=== PATIENT | male | born 1970 | race Caucasian/White ===

== ENCOUNTER 2018-09-20 14:18 | Emergency (ER) | payer OTHER ==
[2018-09-20 14:37] VITALS: BMI 29.1
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
[2018-09-20 14:59] LABS: BASO % 0.5 % (0-2.0); EOS % 0.8 % (0-4.5); HEMATOCRIT 46.4 % (35.4-49); HEMOGLOBIN 16.4 GM/dL (11.7-16.9); LYMPH % 23.8 % (8-40); MCHC 35.4 g/dl (32.0-35.9); MEAN CELL VOLUME 93.1 fl (80-96); MEAN PLT VOLUME 8.6 fl (7.5-11.1); MONO % 4.8 % (3.8-10.2); NEUT % 70.1 % (42.8-82.8); PLATELET COUNT 187 K/MM3 (134-434); RBC 4.98 M/mm3 (4.00-5.60); WHITE BLOOD COUNT 8.1 K/mm3 (4.0-10.0)
[2018-09-20 15:19] LABS: INR 0.92 (0.83-1.09); PROTHROMBIN TIME (PATIENT) 10.9 SEC (9.7-13.0)
[2018-09-20 15:22] LABS: ACTIVATED PTT 30.4 SECONDS (25.2-36.5)
[2018-09-20 15:41] LABS: ALK PHOS 77 U/L (45-117); ANION GAP 11 MMOL/L (8-16); BILIRUBIN,TOTAL 0.7 mg/dL (0.2-1); BLOOD UREA NITROGEN 11 mg/dL (7-18); CHLORIDE 107 mmol/L (98-107); CO2 23 mmol/L (21-32); CREATININE 1.1 mg/dL (0.55-1.3); GLUCOSE,RANDOM 125 mg/dL (74-106); MAGNESIUM 2.1 mg/dL (1.8-2.4); POTASSIUM 3.5 mmol/L (3.5-5.1); SGOT/AST 28 U/L (15-37); SGPT/ALT 80 U/L (13-61); SODIUM 141 mmol/L (136-145); TOT PROT 6.8 g/dl (6.4-8.2)
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
[2018-09-20 18:40] VITALS: TEMP 98.2
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
[2018-09-20 19:48] VITALS: BP 122/76; PULSE 89
--- NOTE | 2018-09-21 12:50 | EKG ---
Test Reason : Blood Pressure : / mmHG Vent. Rate : 110 BPM Atrial Rate : 110 BPM P-R Int : 120 ms QRS Dur : 086 ms QT Int : 332 ms P-R-T Axes : 057 056 084 degrees QTc Int : 449 ms SINUS TACHYCARDIA OTHERWISE NORMAL ECG NO PREVIOUS ECGS AVAILABLE Confirmed by MAGDALENE BROOKS MD ([id number]) on 09/21/2018 12:49:55 PM Referred By: Confirmed By:MAGDALENE BROOKS MD
== END 2018-09-20 19:50 | disposition home or self-care (01) ==
LOC: JER 14:18
DX: T42.4X2A Poisoning by benzodiazepines, intentional self-harm, initial encounter (principal); F41.8 Other specified anxiety disorders; F32.9 Major depressive disorder, single episode, unspecified; K21.9 Gastro-esophageal reflux disease without esophagitis
CPT/HCPCS: 36415; 80053; 80307; 83735; 84443; 85025; 85610; 85730; 93005; 93010; 99283-25